=== PATIENT | male | born 1980 | race African-American/Black ===

== ENCOUNTER 2018-01-27 18:09 | Emergency (ER) | payer OTHER ==
[2018-01-27 18:22] VITALS: BMI 25.1
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
[2018-01-27] MEDS ORDERED: KETOROLAC TROMETHAMINE 60 MG/2 ML VIAL IM ONE (18:25)
[2018-01-27] MEDS ORDERED: KETOROLAC TROMETHAMINE 60 MG/2 ML VIAL ONE (18:28)
[2018-01-27] MEDS ORDERED: IBUPROFEN 400 MG TABLET (FP) PO ONE ×2 (18:32→18:35)
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
[2018-01-27] MEDS ORDERED: CYCLOBENZAPRINE HCL 5 MG TABLET PO STA (18:56)
[2018-01-27 18:58] VITALS: PULSE 79
[2018-01-27] MEDS ORDERED: CYCLOBENZAPRINE HCL 10 MG TABLET (FP) ONE (18:59)
[2018-01-27 19:24] VITALS: BP 159/92
== END 2018-01-27 19:29 | disposition home or self-care (01) ==
LOC: JERFT 18:09
PROC: 3E0233Z Introduction of Anti-inflammatory into Muscle, Percutaneous Approach (ICD-10-PCS; principal; 2018-01-27)
DX: S16.1XXA Strain of muscle, fascia and tendon at neck level, initial encounter (principal); S39.012A Strain of muscle, fascia and tendon of lower back, initial encounter; M62.830 Muscle spasm of back; V49.49XA Driver injured in collision with other motor vehicles in traffic accident, initial encounter; Y92.488 Other paved roadways as the place of occurrence of the external cause; Y93.89 Activity, other specified; Y99.8 Other external cause status; I10 Essential (primary) hypertension
CPT/HCPCS: 72050-TC-FY; 99281-25